=== PATIENT | male | born 1955 | race Caucasian/White ===

== ENCOUNTER → 2023-10-14 13:43 | Outpatient (REF) | payer MEDICARE, SELFPAY | LOC: PAVMRI 13:43 | PROVIDERS: ATTENDING PHYSICIAN Nurse Practitioner | DX: R42 Dizziness and giddiness (principal) | CPT/HCPCS: 70553; A9575 ==

== ENCOUNTER 2024-02-14 12:32 | Emergency (ER) | payer MEDICARE, SELFPAY ==
[2024-02-14 12:34] VITALS: BP 194/109
[2024-02-14 13:00] LABS: % Basophils 0.3 % (0-2); % Eosinophils 1.5 % (0-6); % Immature Granulocytes 0.3 % (0-0.5); % Lymphocytes 17.1 % (20.5-51.1); % Monocytes 6.9 % (1.7-9.3); % Neutrophils 73.9 % (42.2-75.2); Absolute Eosinophils 0.1 10^3/uL (0-0.7); Absolute Lymphocytes 1.3 10^3/uL (1.2-3.4); Absolute Monocytes 0.5 10^3/uL (0.1-0.6); Absolute Neutrophils 5.8 10^3/uL (1.4-6.5); Hemoglobin 14.9 g/dL (13.0-18.0); Mean Corp Hgb Conc. 33.9 g/dL (33.0-37.0); Mean Corpuscular Hgb 28.8 pg (27.0-31.0); Mean Corpuscular Volume 84.9 fL (80.0-94.0); Mean Platelet Volume 9.5 fL (7.4-10.4); Nucleated Red Blood Cells % 0 % (-); Platelet Count 162 10^3/uL (130-400); Red Blood Cell Count 5.18 10^6/uL (4.70-6.10); Red Cell Dist. Width 14.1 % (11.5-14.5); White Blood Cell Count 7.8 10^3/uL (4.8-10.8)
[2024-02-14 13:12] LABS: ALT (SGPT) 25 U/L (0-50); AST (SGOT) 26 U/L (17-59); Albumin 4.5 g/dl (3.5-5.0); Alkaline Phosphatase 98 U/L (38-126); Blood Urea Nitrogen 20 mg/dl (9-20); Calcium 9.9 mg/dl (8.4-10.2); Carbon Dioxide 28 mmol/L (22-30); Chloride 102 mmol/L (98-107); Glucose 152 mg/dl (70-99); Potassium 4.2 mmol/L (3.5-5.1); Sodium 144 mmol/L (135-145); Total Bilirubin 0.7 mg/dl (0.2-1.3); Total Protein 7.3 g/dl (6.3-8.2); eGFR > 60.00
[2024-02-14 13:24] LABS: Troponin I < 0.012 ng/ml
[2024-02-14 14:01] VITALS: BMI 24.6
[2024-02-14 14:07] VITALS: BP 180/99
--- NOTE | 2024-02-14 14:28 | ED.GENMED ---
History of Present Illness
General
Chief Complaint: Blood Pressure Problem
Source: patient and spouse
Time Seen by Provider: 02/14/24 13:56
History of Present Illness
History of Present Illness:
This patient is a 68-year-old male who presents emergency department with complaints of feeling 'lousy', also described as feeling tired. He recently had a reduction in his lisinopril because it was causing dizziness. Since that time, he has been
checking his blood pressure at least daily and notes that it has been persistently elevated. Today, it was exceptionally elevated which prompted his visit here. He describes a variety of different somewhat vague symptoms such as feeling 'slow',
intermittent heaviness' in his chest, and just not feeling right. He denies dyspnea, new dyspnea on exertion, fever, chills. He has intermittent headaches but no headache at this time. He denies new dizziness, numbness, tingling, focal, change in
speech, change in vision, change in balance, or other complaints. Patient notes these complaints off and on for the last few weeks.
Past History
Past History
ED Past Medical History: HTN and IDDM
ED Past Surgical History: Other (Her surgery)
Social History
Tobacco: Non-smoker
Alcohol: None
Drug: None
Personal:
Living: with family
Employment: Employed
Family History
Family History: Hypertension; Negative Diabetes, CAD, Asthma or Cancer
Phy Exam
Physical Exam
Physical Exam:
GENERAL: Alert , in no apparent distress
EYE: pupils equal and reactive
NECK: Supple, no significant adenopathy.
ENT: o/p clr, mmm.
CARDIAC: Regular rate and rhythm .
LUNGS: Clear breath sounds bilaterally, no acute respiratory distress, no wheezes/rales/rhonchi
ABDOMEN: Soft, without focal tenderness, no r/g, no cvat
NEUROLOGICAL: Alert and oriented, no focal neuro deficits, [id number] normal, motor 5 out of 5, sensory intact, cranial nerves II through XII
SKIN: Warm and dry, skin intact.
MUSCULOSKELETAL: No edema, well perfused.
PSYCH: Normal and appropriate interaction.
Course
Orders/Labs/Results
Orders:
Orders
02/14/24 12:37
Electrocardiogram (*1) Urgent
Reason for Study: Hypertension, Benign
EKG- Treatment ONCE
02/14/24 12:46
CMP [Comprehensive Metabolic Panel] Urgent
Complete Blood Count/With Diff Urgent
Troponin I Urgent
02/14/24 15:50
Troponin I Urgent
Abnormal Lab Results
02/14/24
12:46
Lymphocytes % 17.1 L %
(20.5-51.1)
Glucose 152 H mg/dl
(70-99)
02/14/24 12:46
02/14/24 12:46
Vital Signs
Initial and Last Documented VS:
Initial Vital Signs
Temp Pulse Resp BP Pulse Ox
97.6 F 58 16 194/109 99
02/14/24 12:34 02/14/24 12:34 02/14/24 12:34 02/14/24 12:34 02/14/24 12:34
Last Documented Vital Signs
Temp Pulse Resp BP Pulse Ox
97.6 F 47 15 157/94 96
02/14/24 12:34 02/14/24 15:00 02/14/24 15:00 02/14/24 15:00 02/14/24 15:00
*Critical Care Note
Total Time (30-74mins, 75-104mins- exclusive of procedures): Not Applicable
Update Note
Update Note:
Patient presents to the Emergency Department with ____feeling tired with elevated blood pressure
Number and Complexity of Problems Addressed at the Encounter
� Chronic conditions affecting care:
� Acute Exacerbation and/or Progression of Chronic Illness:
� Differential Diagnosis includes: But not limited to anemia, electrolyte disorder, hypertension, etc.
Amount and/or Complexity of Data to be Reviewed and Analyzed
� I performed an independent evaluation of and my interpretation is:
EKG: Read by me, sinus bradycardia, normal rate, normal axis, no acute ischemia
CT:
Xrays:
Laboratory Studies: Unremarkable
Other:
� Review of other/old records reveals: Echocardiogram April 2023 trileaflet aortic valve with calcification, mild , EF 60 to 65%, normal diastolic function
� Clinical information was obtained by an independent historian: who is bedside
� Prescriptions/Medications Considered but not given:
� Further testing considered but not performed:
Risk of Complications and/or Morbidity or Mortality of Patient Management
� Social determinants of health affecting care:
� Discussion with other providers (PCP, Hospitalists, Consultants, etc):
� Escalation of care including admission/observation vs risk of discharge considered:426 PM BP has reduced spontaneously, no new sxs, pt feels well. I hesitate to make modifications to his bp regimen at this time, recommend
close f/u with md who amanges (cards) in AM/this week. Aware of import of f/u and reasons to rted.
ED Attending Note
-
Portions of this chart may have been created with voice recognition software.� Occasional wrong word or��sound alike� substitutions may have occurred due to the inherent limitations of voice recognition software.
Discharge Plan
Departure
Patient Disposition: Home (Routine Discharge)
Date of Disposition: 02/14/24
Time of Disposition: 16:25
Patient with high blood pressure during this ER visit?: Yes
Condition: Good
Discharge Problem:
Hypertension
Instructions: High Blood Pressure (DC), BLOOD PRESSURE
Prescriptions:
No Action
lisinopril 10 MG tablet
10 mg PO DAILY
Insulin Pump [Patient's Own Insulin Pump:] 1 UNITS Pump.Resvr
0 ea SC ACHS
Patient Comments:
humalog
nirmatrelvir-ritonavir [Paxlovid] 10 DOSE/PACKET tablet
1 dose PO BID 5 Days Qty: 30 0RF
Rx Instructions:
Take Nirmatrelvir 300 mg (2 tabs) and Ritonavir 100 mg (1 tab) by mouth twice a day in AM and PM for 5 days.
Referrals:
Devika Nolasco CRNP [Family Provider] -
Activity Restrictions/Additional Instructions:
PLEASE CONTACT YOUR ENVIRONMENTAL SCIENTISTS TOMORROW REGARDING YOUR BLOOD PRESSURE MANAGEMENT. PLEASE RECORD YOUR BLOOD PRESSURE JUST ONCE A DAY, AT THE SAME TIME EACH DAY, AND REPORT TO YOUR DOCTOR. IF YOU DEVELOP FEVER, VOMITING, SEVERE HEADACHE, CHANGE IN
VISION/BALANCE, CHEST PAIN, TROUBLE BREATHING, OR OTHER WORRISOME SIGNS, GO TO THE ER IMMEDIATELy!
Interventions
Interventions:
*Risk Screen - Suicide Last Done: 02/14/24 12:34
*General Assessment Last Done: 02/14/24 12:34
*ED COVID-19 Vaccine History Last Done: 02/14/24 12:34
ED- Cardiac Assessment Last Done: 02/14/24 14:03
ED- Neurological Assessment Last Done: 02/14/24 14:03
Discharge Date and Time
Print Language: MALTESE
[2024-02-14 15:00] VITALS: BP 157/94
[2024-02-14 16:16] VITALS: BP 141/87
[2024-02-14 16:24] LABS: Troponin I < 0.012 ng/ml
== END 2024-02-14 16:43 | disposition home or self-care (01) ==
LOC: EMR 12:32
PROVIDERS: Emergency Medicine; EMERGENCY PHYSICIAN Emergency Medicine; FAMILY PHYSICIAN Nurse Practitioner
DX: I10 Essential (primary) hypertension (principal); E11.9 Type 2 diabetes mellitus without complications; Z79.4 Long term (current) use of insulin; Z79.899 Other long term (current) drug therapy
CPT/HCPCS: 99284; 80053; 84484; 85025; 93005

== ENCOUNTER → 2024-07-19 14:49 | Outpatient (REF) | payer OTHER, SELFPAY | LOC: HWRCS 14:49 | PROVIDERS: ATTENDING PHYSICIAN Internal Medicine Cardiovascular Disease; FAMILY PHYSICIAN Nurse Practitioner | DX: I35.0 Nonrheumatic aortic (valve) stenosis (principal) | CPT/HCPCS: 93306 ==

== ENCOUNTER → 2025-02-24 10:55 | Outpatient (REF) | payer OTHER, SELFPAY | LOC: EMG 10:55 | PROVIDERS: ATTENDING PHYSICIAN Nurse Practitioner | DX: R29.898 Other symptoms and signs involving the musculoskeletal system (principal); R20.0 Anesthesia of skin | CPT/HCPCS: 95886; 95911 ==

== ENCOUNTER → 2025-03-29 12:57 | Outpatient (REF) | payer OTHER, SELFPAY | LOC: HWRAD 12:57 | PROVIDERS: ATTENDING PHYSICIAN Nurse Practitioner Family | DX: R42 Dizziness and giddiness (principal); R29.898 Other symptoms and signs involving the musculoskeletal system | CPT/HCPCS: 70450 ==